=== PATIENT | male | born 1975 | race Caucasian/White ===

== ENCOUNTER 2019-01-21 19:51 | Emergency (ER) | payer OTHER ==
[2019-01-21] MEDS ORDERED: Morphine 4 MG/ML VIAL (1 ml) 4 MG/ML VIAL IV ONE (20:12)
[2019-01-21] MEDS ORDERED: ceFAZolin 1 GM ADVAN(*) 1 GM in NS 0.9% 50 ML* 50 ML IVPB ONE (20:12)
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
[2019-01-21] MEDS ORDERED: Tetan/Diph/Pertus SYR(Tdap)* 0.5 ML SYR(BOOSTRIX) use SYR IM ONE (20:21)
[2019-01-21 20:39] LABS: ABS Eosinophils 0.1 10^3/ul (0-0.6); ABS Lymphocytes 1.9 10^3/ul (1.0-4.8); ABS Monocytes 0.5 10^3/ul (0-0.8); ABS Neutrophils 6.7 10^3/ul (1.5-7.7); Eosinophil % 1.5 %; Hematocrit 45 % (42-52); Hemoglobin 15.7 g/dL (14.0-18.0); Lymphocyte % 20.8 %; Mean Corpuscular HGB Conc 35 g/dL (31-36); Mean Corpuscular Hemoglobin 31 pg (27-31); Mean Corpuscular Volume 89 fL (80-94); Mean Platelet Volume 8.4 fL (7.4-10.4); Platelet Count 214 10^3/uL (150-450); Red Blood Count 5.05 10^6 /uL (4.18-5.48); Red Cell Distribution Width 12 % (10-15); White Blood Count 9.3 10^3/uL (3.5-10.8)
[2019-01-21 20:57] LABS: Albumin 4.2 g/dL (3.2-5.2); Albumin/Globulin Ratio 1.8 (1-3); BUN/Creatinine Ratio 15.5 (8-20); Calcium 9.4 mg/dL (8.6-10.3); EGFR African American 120.1 (>60); EGFR Non-African American 99.3 (>60); Globulin 2.4 g/dL (2-4); Total Bilirubin 0.5 mg/dL (0.2-1.0); Total Protein 6.6 g/dL (6.4-8.9)
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
[2019-01-21] MEDS ORDERED: NS 0.9% 1000 ML** 1,000 ML IV ONE (21:29)
[2019-01-22 02:14] VITALS: BP 113/70
== END 2019-01-22 02:14 | disposition short-term general hospital (02) ==
LOC: ED 19:51
DX: S42.351B Displaced comminuted fracture of shaft of humerus, right arm, initial encounter for open fracture (principal); S51.011A Laceration without foreign body of right elbow, initial encounter; S09.90XA Unspecified injury of head, initial encounter; V13.4XXA Pedal cycle driver injured in collision with car, pick-up truck or van in traffic accident, initial encounter; Y93.55 Activity, bike riding; Y92.9 Unspecified place or not applicable; Z23 Encounter for immunization
CPT/HCPCS: 36415; 70450; 71045; 80053; 85025; 85610; 90471; 90715; 96360; 99285; J0690; J2270